=== PATIENT | female | born 1950 | race Two or more races ===

== ENCOUNTER 2018-04-10 09:48 | Emergency (ER) | payer OTHER ==
[~2018-04-10] VITALS: Ht 157.5 cm; Wt 49.9 kg
[~2018-04-10 09:48] MED LIST: COZAAR50 MG PO
[2018-04-10] MEDS ORDERED: IBUPROFEN800 MG PO (14:02)
== END 2018-04-10 14:57 | disposition home or self-care (01) ==
LOC: ER 09:48
DX: S93.692A Other sprain of left foot, initial encounter (principal); X50.3XXA Overexertion from repetitive movements, initial encounter; Y93.89 Activity, other specified; Y92.89 Other specified places as the place of occurrence of the external cause; Y99.8 Other external cause status

== ENCOUNTER → 2020-04-21 | Outpatient (CLI) | payer OTHER ==
[~2020-04-21] MED LIST changes: +IBUPROFEN800 MG PO
== END | disposition home or self-care (01) ==
LOC: MRI 10:39
DX: G30.8 Other Alzheimer's disease (principal)
CPT/HCPCS: 70551